=== PATIENT | female | born 1960 | race Caucasian/White ===

== ENCOUNTER 2019-07-11 09:31 | Emergency (ER) | payer OTHER ==
--- NOTE | 2019-07-11 10:06 | RAD ---
RIGHT ANKLE 3 VIEWS: Date: 07/11/2019 HISTORY: Twisted ankle. FINDINGS: There are no signs of fracture, dislocation, or joint effusion. IMPRESSION: Negative right ankle. POS: [facility]
--- NOTE | 2019-07-11 10:08 | RAD ---
3 views of the right foot: 07/11/2019 COMPARISON: None HISTORY: Injury, trauma, pain FINDINGS: No fracture or dislocation. No radiopaque foreign body or subcutaneous gas. IMPRESSION: No acute findings.
[2019-07-11] MEDS ORDERED: Ketorolac Tromethamine 60 MG/2 ML VIAL ONE (10:33)
== END 2019-07-11 10:29 | disposition home or self-care (01) ==
LOC: ERS 09:31
DX: S93.401A Sprain of unspecified ligament of right ankle, initial encounter (principal); S90.01XA Contusion of right ankle, initial encounter; X50.9XXA Other and unspecified overexertion or strenuous movements or postures, initial encounter
CPT/HCPCS: 96372; J1885